=== PATIENT | female | born 1945 | race Caucasian/White ===

== ENCOUNTER 2022-01-11 12:43 | Emergency (ER) | payer MEDICARE, MEDICAID ==
[~2022-01-11] VITALS: Ht 167 cm; Wt 59.0 kg
--- NOTE | 2022-01-11 12:52 | ED Fall/Injury ---
General Stated Complaint: FALL/HEAD INJURY Source: patient, EMS Exam Limitations: no limitations History of Present Illness Date Seen by Provider: Jan 11, 2022 Time Seen by Provider: 12:38 Initial Comments Patient is a 76-year-old female who presents to the emergency room after a trip and fall at her assisted living facility. She was outside and walking into the doors, tripped on the threshold and fell face forward onto the carpet. She sustained a small lack to the lateral aspect of the left eyebrow as well as a little bit of "rug burn" just above that on her forehead. She did not have any loss of consciousness. She is not having a headache. She is not on any blood thinners. She is not nauseous. She has no neck pain. No extremity pain. No chest pain, shortness of breath, abdominal pain. She denies numbness, tingling or weakness. She is quite perky, alert and oriented. No complaints whatsoever. Medication list has been reviewed. Initially EKG fire reported that she was so mewhat hypertensive in the 160s to 180s systolic however her blood pressure currently is in the 130s over 40s. She is not tachycardic. She denies any recent illnesses. All other review of systems reviewed and negative except as stated Occurred: just prior to arrival Injuries/Pain Location: head, face Loss of Consciousness: no loss of consciousness Associated Symptoms (Fall): Denies Symptoms Allergies and Home Medications Allergies Coded Allergies: codeine (Verified Allergy, Intermediate, 01/11/22) Patient Home Medication List Home Medication List Reviewed: Yes Review of Systems Review of Systems Constitutional: see HPI Eyes: No Symptoms Reported Ears, Nose, Mouth, Throat: no symptoms reported Respiratory: no symptoms reported Cardiovascular: no symptoms reported Gastrointestinal: no symptoms reported Genitourinary: no symptoms reported : No Musculoskeletal: no symptoms reported Skin: other (abrasion to left forehead and laceration to left eyebrow) Psychiatric/Neurological: No Symptoms Reported All Other Systems Reviewed Negative Unless Noted: Yes Physical Exam Vital Signs Vital Signs - First Documented 01/11/22 12:50 Temp 36.9 Pulse 63 Resp 18 B/P (MAP) 137/79 (98) Pulse Ox 96 O2 Delivery Room Air Capillary Refill : Height, Weight, BMI Height: '" Weight: lbs. oz. kg; BMI Method: General Appearance: WD/WN, no apparent distress HEENT: PERRL/EOMI, TMs normal, pharynx normal Neck: non-tender, full range of motion, normal inspection Cardiovascular: regular rate, rhythm Respiratory: lungs clear, normal breath sounds, no respiratory distress, no accessory muscle use Gastrointestinal: normal bowel sounds, non tender, soft Pelvic: other (no tenderness) Extremities: normal range of motion, non-tender, normal inspection, no pedal edema, no calf tenderness Neurologic/Psychiatric: alert, normal mood/affect, oriented x 3 Skin: normal color, warm/dry, other (1.5 cm lac to left eyebrow - no active bleeding) Amador Coma Score Best Eye Response: (4) Open Spontaneously Best Verbal Response: (5) Oriented Best Motor Response: (6) Obeys Commands Procedures/Interventions Wound Location: Face Other Wound Location left eyebrow Wound Length (cm): 1.5 Wound's Depth, Shape: superficial, linear Wound Explored: clean Irrigated w/ Saline (ccs): 50 Betadine Prep?: No Anesthesia: 1% Lidocaine Volume Anesthetic (ccs): 2 Suture: Prolene Suture Size: 6-0 Number of Sutures: 4 Layer Closure?: 1 Number Deep Layer Sutures: 0 Sterile Dressing Applied?: No Progress/Results/Core Measures Results/Orders Vital Signs/I&O 01/11/22 12:50 Temp 36.9 Pulse 63 Resp 18 B/P (MAP) 137/79 (98) Pulse Ox 96 O2 Delivery Room Air Departure Impression Primary Impression: Fall Qualified Codes: W19.XXXA - Unspecified fall, initial encounter Additional Impressions: Minor head injury Qualified Codes: S09.90XA - Unspecified injury of head, initial encounter Facial laceration Qualified Codes: S01.81XA - Laceration without foreign body of other part of head, initial encounter Disposition: 01 HOME, SELF-CARE Condition: Stable Departure-Patient Inst. Decision time for Depature: 12:54 Patient Instructions: Minor Head Injury, Adult ED, Laceration Repair With Stitches ED Add. Discharge Instructions: Keep the sutures clean and covered for a day or 2. You can put a little neosporin (triple antibiotic ointment) over the sutures twice a day for 2 days. Over the counter ibuprofen or tylenol as needed for headache. If you develop a severe headache, vision changes or persistent nausea and vomiting, please come back to the emergency department for re-evaluation. follow up with your family doctor as needed. the stitches will need to come out in 5-6 days, the emergency room can take these out, as it is a part of this visit. ANGELICA BRANDT MD Jan 11, 2022 12:52
[2022-01-11 13:26] VITALS: BP 135/80
== END 2022-01-11 13:25 | disposition home or self-care (01) ==
LOC: ER 12:46
DX: S01.112A Laceration without foreign body of left eyelid and periocular area, initial encounter (principal); S09.90XA Unspecified injury of head, initial encounter; W01.0XXA Fall on same level from slipping, tripping and stumbling without subsequent striking against object, initial encounter; Y93.01 Activity, walking, marching and hiking
CPT/HCPCS: 12001

== ENCOUNTER 2022-07-25 20:57 | Emergency (ER) | payer MEDICARE, MEDICAID ==
[~2022-07-25] VITALS: Ht 162.6 cm; Wt 61.2 kg
--- NOTE | 2022-07-25 21:04 | ED General ---
General Stated Complaint: LOW 02 History of Present Illness Date Seen by Provider: Jul 25, 2022 Time Seen by Provider: 21:04 Initial Comments 77-year-old female sent and was just some generalized weakness questionable low oxygen. Patient resides at the custodial with reports usually up around but that she is pretty weak today not able to get up and around.. That when they checked her oxygen was low. When EMS arrived it was 88% they placed on some oxygen when she arrived to the ER it was in the low to mid 90s on room air. Patient herself does not have any complaints. Allergies and Home Medications Allergies Coded Allergies: codeine (Verified Allergy, Intermediate, 01/11/22) Patient Home Medication List Home Medication List Reviewed: Yes Potassium Chloride (Potassium Chloride) 20 Meq Tablet.er, 20 MEQ PO DAILY Prescribed by: HERNANDEZ GAXIOLA on 07/25/222215 Review of Systems Review of Systems Constitutional: No chills, No fever; malaise, weakness Respiratory: see HPI Cardiovascular: no symptoms reported Genitourinary: no symptoms reported Musculoskeletal: no symptoms reported Psychiatric/Neurological: Weakness Past Gdysqui-Wkyjim-Utaukr Hx Immunizations Up To Date Third COVID19 Vaccination Date: YES Physical Exam Vital Signs Vital Signs - First Documented 07/25/22 20:57 Temp 36.8 Pulse 67 Resp 19 B/P (MAP) 223/90 (134) Pulse Ox 94 O2 Delivery Nasal Cannula O2 Flow Rate 2.00 Capillary Refill : Height, Weight, BMI Height: '" Weight: lbs. oz. kg; 21.00 BMI Method: General Appearance: No Apparent Distress, Thin, Other (frail ) Respiratory: Lungs Clear, Normal Breath Sounds Cardiovascular: Regular Rate, Rhythm, No Edema Extremity: Normal Capillary Refill Neurologic/Psychiatric: Alert, Other (generalized weakness ) Skin: Normal Color, Warm/Dry Procedures/Interventions Suture Size: 6-0 Progress/Results/Core Measures Suspected Sepsis SIRS Temperature: Pulse: Respiratory Rate: Laboratory Tests 07/25/22 21:10: White Blood Count 8.9 Blood Pressure / Mean: Laboratory Tests 07/25/22 21:10: Creatinine 0.88, Platelet Count 220, Total Bilirubin 0.5 Results/Orders Lab Results Laboratory Tests Test 07/25/22 21:10 07/25/22 21:25 07/25/22 21:35 Range/Units White Blood Count 8.9 4.3-11.0 10^3/uL Red Blood Count 4.78 3.80-5.11 10^6/uL Hemoglobin 13.0 11.5-16.0 g/dL Hematocrit 40 35-52 % Mean Corpuscular Volume 83 80-99 fL Mean Corpuscular Hemoglobin 27 25-34 pg Mean Corpuscular Hemoglobin Concent 33 32-36 g/dL Red Cell Distribution Width 15.1 H 10.0-14.5 % Platelet Count 220 130-400 10^3/uL Mean Platelet Volume 10.9 9.0-12.2 fL Immature Granulocyte % (Auto) 0 % Neutrophils (%) (Auto) 70 42-75 % Lymphocytes (%) (Auto) 22 12-44 % Monocytes (%) (Auto) 7 0-12 % Eosinophils (%) (Auto) 1 0-10 % Basophils (%) (Auto) 0 0-10 % Neutrophils # (Auto) 6.2 1.8-7.8 10^3/uL Lymphocytes # (Auto) 1.9 1.0-4.0 10^3/uL Monocytes # (Auto) 0.7 0.0-1.0 10^3/uL Eosinophils # (Auto) 0.1 0.0-0.3 10^3/uL Basophils # (Auto) 0.0 0.0-0.1 10^3/uL Immature Granulocyte # (Auto) 0.0 0.0-0.1 10^3/uL Sodium Level 142 135-145 MMOL/L Potassium Level 2.9 L 3.6-5.0 MMOL/L Chloride Level 103 98-107 MMOL/L Carbon Dioxide Level 25 21-32 MMOL/L Anion Gap 14 5-14 MMOL/L Blood Urea Nitrogen 15 7-18 MG/DL Creatinine 0.88 0.60-1.30 MG/DL Estimat Glomerular Filtration Rate 68 BUN/Creatinine Ratio 17 Glucose Level 127 H 70-105 MG/DL Calcium Level 9.2 8.5-10.1 MG/DL Corrected Calcium 9.8 8.5-10.1 MG/DL Magnesium Level 1.5 L 1.6-2.4 MG/DL Total Bilirubin 0.5 0.1-1.0 MG/DL Aspartate Amino Transf (AST/SGOT) 21 5-34 U/L Alanine Aminotransferase (ALT/SGPT) 13 0-55 U/L Alkaline Phosphatase 85 40-136 U/L C-Reactive Protein High Sensitivity 1.43 H 0.00-0.50 MG/DL Total Protein 6.7 6.4-8.2 GM/DL Albumin 3.3 3.2-4.5 GM/DL Urine Color YELLOW Urine Clarity CLEAR Urine pH 7.0 5-9 Urine Specific [place] 1.020 1.016-1.022 Urine Protein 3+ H NEGATIVE Urine Glucose (UA) NEGATIVE NEGATIVE Urine Ketones NEGATIVE NEGATIVE Urine Nitrite NEGATIVE NEGATIVE Urine Bilirubin NEGATIVE NEGATIVE Urine Urobilinogen 0.2 < = 1.0 MG/DL Urine Leukocyte Esterase NEGATIVE NEGATIVE Urine RBC (Auto) 1+ H NEGATIVE Urine RBC 0-2 /HPF Urine WBC 0-2 /HPF Urine Squamous Epithelial Cells 5-10 /HPF Urine Crystals NONE /LPF Urine Bacteria TRACE /HPF Urine Casts PRESENT /LPF Urine Hyaline Casts 0-2 H /LPF Urine Mucus NEGATIVE /LPF Urine Culture Indicated NO Influenza Type A (RT-PCR) Not Detected Not Detecte Influenza Type B (RT-PCR) Not Detected Not Detecte SARS-CoV-2 RNA (RT-PCR) Not Detected Not Detecte My Orders Orders - GAXIOLA,HERNANDEZ L DO Cbc With Automated Diff (07/25/22 21:04) Comprehensive Metabolic Panel (07/25/22 21:04) Hs C Reactive Protein (07/25/22 21:04) Magnesium (07/25/22 21:04) Ua Culture If Indicated (07/25/22 21:04) Influenza A And B By Pcr (07/25/22 21:04) Covid 19 Inhouse Test (07/25/22 21:04) Enalaprilat Injection (Vasotec Injection (07/25/22 21:15) Potassium Chloride (Tablet) (K Dur Table (07/25/22 21:45) Chest 1 View, Ap/Pa Only (07/25/22 21:04) Magnesium 1 Gm/100 Ml Ivpb (Magnesium Abraham (07/25/22 21:45) Albuterol/Ipra Inhalation Soln (Duoneb I (07/25/22 22:30) Svn Small Volume Nebulizer (07/25/22 22:26) Methylprednisolone Sod Succ (Solu-Medrol (07/25/22 23:00) Medications Given in ED Current Medications Medications Dose Ordered Sig/Anuja Route Start Time Stop Time Status Last Admin Dose Admin Albuterol/ Ipratropium 3 ml ONCE ONCE INH 07/25/22 22:30 07/25/22 22:31 DC 07/25/22 22:34 3 ML Magnesium Sulfate/ Dextrose 100 ml @ 100 mls/hr ONCE ONCE IV 07/25/22 21:45 07/25/22 22:44 DC 07/25/22 21:48 100 MLS/HR Potassium Chloride 20 meq ONCE ONCE PO 07/25/22 21:45 07/25/22 21:46 DC 07/25/22 21:45 20 MEQ Vital Signs/I&O 07/25/22 07/25/22 20:57 22:34 Temp 36.8 Pulse 67 Resp 19 B/P (MAP) 223/90 (134) Pulse Ox 94 88 O2 Delivery Nasal Cannula Nasal Cannula O2 Flow Rate 2.00 2.00 Capillary Refill : Progress Note : Progress Note Patient's diagnostic studies were ordered reviewed and interpreted by me. Patient's potassium was low at 2.9 and mag was low at 1.7. She was given oral IV potassium replacement along with IV magnesium replacement. Patient did seem to be perked up a little bit following the replacement. Patient's urinalysis was reviewed and was negative. Patient's x-ray was ordered reviewed with initial interpretation negative by me with final interpretation per radiology report. Patient remained in the low 90s on room air. Her blood pressure was slightly elevated but no acute significant elevations. Patient likely needs some mild potassium replacement at the custodial and can use supplemental oxygen as needed. She is stable and discharged back to the nursing Diagnostic Imaging Diagonstic Imaging: Xray Plain Films/CT/US/NM/MRI: chest Comments Date of Exam:07/25/22 CHEST 1 VIEW, AP/PA ONLY INDICATION: Hypoxemia. EXAMINATION: Portable chest at 9:46 PM. FINDINGS: Heart size and pulmonary vascularity are normal. Lungs are clear. There is no effusion or pneumothorax. IMPRESSION: Negative chest. Departure Impression Primary Impression: Hypokalemia Additional Impressions: Hypomagnesemia Bronchitis Disposition: 01 HOME, SELF-CARE Condition: Stable Departure-Patient Inst. Patient Instructions: Low Magnesium Level, Hypokalemia Add. Discharge Instructions: Please follow-up with her primary care provider early next week to recheck her magnesium and potassium levels. She may use small amount of supplemental oxygen if her oxygen drops below 90. Scripts Albuterol Sulfate (VENTOLIN HFA) 1 Puff Puff 2 PUFF INH Q4H for Shortness of Breath, #1 EA 1 PUFF = 90 MCG Prov: HERNANDEZ GAXIOLA DO 07/25/22 Potassium Chloride (Potassium Chloride) 20 Meq Tablet.er 20 MEQ PO DAILY, #10 TAB Prov: HERNANDEZ GAXIOLA DO 07/25/22 HERNANDEZ GAXIOLA DO Jul 25, 2022 21:04
[2022-07-25] MEDS: ENALAPRILAT 2.5 MG/2 ML (VASOTEC) VIAL IV ONE ×2 (21:15→21:30)
[2022-07-25 21:18] LABS: BASOPHILS % (AUTO) 0 % (0-10); EOSINOPHILS # (AUTO) 0.1 10^3/uL (0.0-0.3); EOSINOPHILS % (AUTO) 1 % (0-10); HEMATOCRIT 40 % (35-52); LYMPHOCYTES # (AUTO) 1.9 10^3/uL (1.0-4.0); LYMPHOCYTES % (AUTO) 22 % (12-44); MEAN CORPUSCULAR HEMOGLOBIN 27 pg (25-34); MEAN CORPUSCULAR HGB CONC 33 g/dL (32-36); MEAN CORPUSCULAR VOLUME 83 fL (80-99); MEAN PLATELET VOLUME 10.9 fL (9.0-12.2); MONOCYTES # (AUTO) 0.7 10^3/uL (0.0-1.0); MONOCYTES % (AUTO) 7 % (0-12); NEUTROPHILS # (AUTO) 6.2 10^3/uL (1.8-7.8); NEUTROPHILS % (AUTO) 70 % (42-75); PLATELET COUNT 220 10^3/uL (130-400); WHITE BLOOD COUNT 8.9 10^3/uL (4.3-11.0)
[2022-07-25 21:28] LABS: ALBUMIN 3.3 GM/DL (3.2-4.5); POTASSIUM 2.9 MMOL/L (3.6-5.0)
[2022-07-25 21:29] LABS: CALCIUM 9.2 MG/DL (8.5-10.1)
[2022-07-25 21:31] LABS: TOTAL PROTEIN 6.7 GM/DL (6.4-8.2)
[2022-07-25 21:32] LABS: BILIRUBIN,TOTAL 0.5 MG/DL (0.1-1.0)
[2022-07-25 21:34] LABS: CREATININE SERUM 0.88 MG/DL (0.60-1.30)
[2022-07-25 21:37] LABS: MAGNESIUM 1.5 MG/DL (1.6-2.4)
[2022-07-25 21:38] LABS: BILIRUBIN,URINE NEGATIVE (NEGATIVE); CLARITY,URINE CLEAR; COLOR,URINE YELLOW; GLUCOSE, URINE (UA) NEGATIVE (NEGATIVE); KETONES,URINE NEGATIVE (NEGATIVE); LEUKOCYTE ESTERASE ,URINE NEGATIVE (NEGATIVE); NITRITE,URINE NEGATIVE (NEGATIVE); PROTEIN,URINE 3+ (NEGATIVE)
[2022-07-25] MEDS ORDERED: MAGNESIUM 1 GM/100 ML IVPB 100 ML IV ONE (21:45)
[2022-07-25] MEDS ORDERED: KCL 20 MEQ TAB (K-DUR) PO ONE (21:45)
[2022-07-25 21:51] LABS: BACTERIA,URINE TRACE /HPF; RBC,URINE 0-2 /HPF; WBC,URINE 0-2 /HPF
[2022-07-25 21:52] LABS: HYALINE CASTS, URINE 0-2 /LPF
--- NOTE | 2022-07-25 21:56 | Diagnostic Imaging Report ---
INDICATION: Hypoxemia. EXAMINATION: Portable chest at 9:46 PM. FINDINGS: Heart size and pulmonary vascularity are normal. Lungs are clear. There is no effusion or pneumothorax. IMPRESSION: Negative chest. Dictated by: Dictated on workstation # [id number]
[2022-07-25] MEDS ORDERED: POTA-51 PO (22:16)
[2022-07-25] MEDS ORDERED: RT-ALBUTEROL/IPRATROPIUM 3 ML (DUONEB) VIAL INH ONE (22:30)
[2022-07-25] MEDS ORDERED: RT-ALBUINH INH (22:56)
[2022-07-25] MEDS ORDERED: methylPREDNISolone 40 MG/ML (Solu-MEDROL) VIAL IV ONE (23:00)
[2022-07-25 23:20] VITALS: BP 163/70
== END 2022-07-25 23:28 | disposition home or self-care (01) ==
LOC: EDUNIT# 20:57 → ER 20:59
DX: E87.6 Hypokalemia (principal); E83.42 Hypomagnesemia; J40 Bronchitis, not specified as acute or chronic; R03.0 Elevated blood-pressure reading, without diagnosis of hypertension; Z20.822 Contact with and (suspected) exposure to COVID-19
CPT/HCPCS: 36415; 51701; 71045; 80053; 81000; 83735; 85025; 86141; 87636; 94640

== ENCOUNTER → 2022-08-29 | Outpatient (CLI) | payer MEDICARE, MEDICAID ==
[~2022-08-29] MED LIST: POTA-51 PO; RT-ALBUINH INH
--- NOTE | 2022-08-29 17:13 | Diagnostic Imaging Report ---
Clinical Indication: Patient with mental status changes and declining health. Exam: MRI of the brain performed without IV contrast. Sequences include axial DWI, ADC map, axial T1, axial T2, axial FLAIR, axial gradient echo, sagittal T1, and axial 3-D FSPGR briceno. Comparison: None. Findings: There is a small to moderate sized area of heterogeneous low T2 and high T1 signal involving the cortical regions of the left parietal lobe with low gradient echo signal involving the cortical regions. This area measures grossly 4.5 cm x 2.3 cm in greatest axial dimensions. There is also small area involving left parafalcine posterior parietal lobe region with a small area of low gradient echo signal. There is a moderate amount of parenchymal edema involving the left parietal lobe adjacent to these areas of abnormal signal. These findings have the appearance of a subacute infarct with laminar necrosis and petechial hemorrhage. There is no brain herniation or midline shift. There is severe diffuse patchy confluent areas of high T2 signal white matter changes involving both cerebral hemispheres and periventricular regions and anthony, likely related to chronic small vessel ischemic disease and leukoaraiosis. There is also a small area of increased T2 signal and encephalomalacia involving the right occipital lobe which may be related to a chronic infarct. There is also a small area of subcortical increased T2 signal involving the right frontal lobe which may be related to chronic infarct. There is a small chronic infarct involving the right thalamus. There is no hydrocephalus. Basal cisterns are unremarkable. The visualized [place] of [place] vascular structures show no significant abnormality. There is brain parenchymal volume loss which appears appropriate for patient's age. The extracranial soft tissues, skull, and orbits are unremarkable. There are postoperative changes to both globes which may be related to lens implants. Otherwise, both globes are unremarkable. There is a moderate amount of fluid involving the left mastoid air cells. Paranasal sinuses are clear. 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 There is no brain herniation or midline shift. There is a moderate amount of parenchymal edema involving the left parietal lobe. 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 There is a small infarct involving the right thalamus. 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 Results of this report were discussed with the nurse working with SYL Garcia via the telephone on 08/29/2022 at 1610 hours. Dictated by: Dictated on workstation # [id number]
== END ==
LOC: RAD 13:01
PROVIDERS: ATTEND Nurse Practitioner Community Health
DX: I63.9 Cerebral infarction, unspecified (principal); I67.82 Cerebral ischemia; M25.551 Pain in right hip; R41.0 Disorientation, unspecified; M62.81 Muscle weakness (generalized)
CPT/HCPCS: 70551